=== PATIENT | female | born 1970 | race Caucasian/White ===

== ENCOUNTER 2024-01-20 17:08 | Emergency (ER) | payer BC, SELFPAY ==
[2024-01-20] VITALS (9 sets, daily range): BP systolic 116–164; BP diastolic 87–113; BMI 35.2
[2024-01-20] MEDS: PROTONIX IV 40 MG IV (18:14)
[2024-01-20] MEDS: MAALOX 50 PO (18:15)
[2024-01-20 18:16] LABS: % Basophils 0.7 % (0-2); % Immature Granulocytes 0.2 % (0-0.5); % Lymphocytes 20.9 % (20.5-51.1); % Monocytes 10.9 % (1.7-9.3); % Neutrophils 66.3 % (42.2-75.2); Absolute Basophils 0.1 10^3/uL (0-0.2); Absolute Eosinophils 0.1 10^3/uL (0-0.7); Absolute Lymphocytes 1.9 10^3/uL (1.2-3.4); Absolute Neutrophils 5.9 10^3/uL (1.4-6.5); Hematocrit 43.3 % (37.0-47.0); Hemoglobin 14.8 g/dL (12.0-16.0); Mean Corp Hgb Conc. 34.2 g/dL (33.0-37.0); Mean Corpuscular Hgb 30.9 pg (27.0-31.0); Mean Corpuscular Volume 90.4 fL (81.0-99.0); Mean Platelet Volume 11.9 fL (7.4-10.4); Nucleated Red Blood Cells % 0 %; Platelet Count 174 10^3/uL (130-400); Red Blood Cell Count 4.79 10^6/uL (4.20-5.40); Red Cell Dist. Width 12.8 % (11.5-14.5)
--- NOTE | 2024-01-20 18:17 | ED.GENMED ---
History of Present Illness
General
Chief Complaint: Chest Pain
Source: patient
Exam Limitations: none
Time Seen by Provider: 01/20/24 17:54
Travel History
Have you had any contact with someone who has COVID-19?: No
Do you have any symptoms of coronavirus? Fever > 100 degrees, chills, cough, shortness of breath, sore throat, loss of taste or smell, muscle aches, or headache?: No
History of Present Illness
History of Present Illness:
This is a 53 year old female that comes in with c/o chest tightness. States that this started about 3pm and has continued. States that she called her sister around 4:30pm and they came here. States that she lives by herself and she wanted to make
sure that she would wake up. States that she also has a headache. Denies any fever, chills, SOB, abd pain, nausea, vomiting, diarrhea, dizziness, urinary burning.
Past History
Past History
ED Past Medical History: HTN, Psychiatric (Anxiety, Depression) and Other (Diverticulitis, ); Negative Asthma, Hypercholesterolemia or NIDDM
ED Past Surgical History: Orthopedic (Plate left hand, right knee surgery)
Social History
Tobacco: Former smoker
Alcohol: Occasional
Drug: None
Personal: Single
Living: alone
Family History
Family History: Other (She does not know her family Hx.)
Review of Systems
Review of Systems
All Other Systems: ROS reviewed and negative except as documented in HPI and ROS
Constitutional: Reports no symptoms; Denies fever or chills
EENT: Reports no symptoms
Respiratory: Reports no symptoms; Denies cough or trouble breathing
Cardiac: Reports chest pain (Tightness)
ABD/GI: Reports no symptoms; Denies abdominal pain, nausea, vomiting or diarrhea
: Reports no symptoms; Denies dysuria, frequency or urgency
Musculoskeletal: Reports no symptoms
Skin: Reports no symptoms
Neurological: Reports headache; Denies dizzy
Psychiatric: Reports no symptoms
Phy Exam
General Physical Exam
General Presentation: well appearing and no apparent distress
General age: appears stated age
General Skin: warm and dry
General Habitus: normal
General Mental: alert
General Hydration: appears well hydrated
ENT Exam
ENT Exam: TM's normal, pharynx normal and neck supple
Eye Exam
Eye Exam: EOMI
Cardiovascular Exam
Cardiovascular Exam: regular rate/rhythm, no edema, no murmur and normal peripheral pulses
Pulmonary Exam
Pulmonary Exam: lungs clear, no respiratory distress, no rales, chest non tender, no crackles, no rhonchi, no wheezing and no cough
Gastrointestinal Exam
Gastrointestinal Exam: normal bowel sounds, non tender, soft, no organomegaly, no pulsatile mass and non distended
Musculoskeletal Exam
Musculoskeletal Exam: full ROM and no edema
Skin Exam
Skin Exam: normal color, warm/dry, no rash and no petechia
Psychiatric Exam
Psychiatric Exam: normal mood/affect
Scores
Heart Score for Chest Pain Patients
STEMI patient?: No
History: Slightly or Non-Suspicious
ECG: Normal
Age: >/= 65 years
Risk Factors: 1 or 2 Risk Factors
Troponin: </= Normal Limit
Heart Score for Chest Pain Patients: 3
Heart Score Risk: 2.5% MACE over next 6 weeks
Course
Orders/Labs/Results
Orders:
Orders
01/20/24 17:09
EKG [Electrocardiogram (*1)] Stat
Reason for Study: Chest Pain
01/20/24 17:10
EKG- Treatment ONCE
01/20/24 18:02
Mag Hydrox/Al Hydrox/Simeth [Maalox] 30 ml Phenobarb/Hyoscy/Atropine/Scop [] 10 ml Viscous Lidocaine 2% [Xylocaine Viscous Cup] 10 ml PO NOW
Pantoprazole [Protonix IV] 40 mg IV NOW STA
01/20/24 18:03
CR Chest - 2 Views Urgent
Comment:
Reason For Exam: Chest pain
01/20/24 18:07
Complete Blood Count/With Diff Urgent
Comprehensive Metabolic Panel Urgent
Lipase Urgent
Troponin I Q3H
01/20/24 18:12
Mag Hydrox/Al Hydrox/Simeth [Maalox] 30 ml .ROUTE .STK-MED ONE
Phenobarb/Hyoscy/Atropine/Scop [] 10 ml .ROUTE .STK-MED ONE
Viscous Lidocaine 2% [Xylocaine Viscous Cup] 15 ml .ROUTE .STK-MED ONE
01/20/24 21:05
EKG [Electrocardiogram (*1)] Urgent
Reason for Study: Chest Pain
EKG- Treatment ONCE
01/20/24 21:08
Troponin I Q3H
Abnormal Lab Results
01/20/24
18:07
MPV 11.9 H fL
(7.4-10.4)
Absolute Monos (auto) 1.0 H 10^3/uL
(0.1-0.6)
Monocytes % 10.9 H %
(1.7-9.3)
Potassium 3.4 L mmol/L
(3.5-5.1)
BUN 25 H mg/dl
(7-17)
Glucose 113 H mg/dl
(70-99)
01/20/24 18:07
01/20/24 18:07
Dehydration. glucose nonfasting. Both Troponin <0.012, Lipase normal at 165
Vital Signs
Initial and Last Documented VS:
Initial Vital Signs
Temp Pulse Resp BP Pulse Ox
98 F 80 16 164/113 98
01/20/24 17:10 01/20/24 17:10 01/20/24 17:10 01/20/24 17:10 01/20/24 17:10
Last Documented Vital Signs
Temp Pulse Resp BP Pulse Ox
98 F 88 16 126/98 98
01/20/24 17:10 01/20/24 17:31 01/20/24 17:31 01/20/24 17:31 01/20/24 17:31
MDM/Problems Addressed
Differential Diagnosis Includes:
GERD, Coronary syndrome
MDM/Problems Addressed:
This is a 53 year old female that comes in with c/o chest tightness. States that this started about 3pm and has continued.
Will check labs, ECG and give Protonix and Gi cocktail.
back into see patient. Patient states that she is feeling better after the medication. Explained that her blood work shows that she is dehydrated and that her First Troponin is normal.
Back into see patient. Explained that her second Troponin is normal. ECG are normal. patient has an appointment with Dr. Prieto tomorrow. Explained that his most likely was reflux. Will place patient on Protonix daily and encouraged patient to try
and decrease her caffeine intake. Patient to return with any concerns,
Repeat ECG: rate 69, NSR< Normal axis. QRS normal. Negative for ischemia. Nonspecific T wave III, V1, V2, v3, Checked by Dr. Esparza
Chronic conditions affecting care:
NA
Acute Exacerbation and/or Progression of Chronic Illness:
NA
*Radiology
Radiology exam reviewed: radiology read reviewed (Chest-No acute cardiopulmonary disease. )
*Pulse Oximetry
Patient hypoxic: no
*EKG
Interpreted by ED Provider?: Yes
Heart Rate: 77
Rate: normal
Rhythm: sinus
[place]: normal axis
Interval: normal interval
QRS Pattern: normal QRS
Ischemia: no ischemia
*[employer] Interpretation
Rate: normal
Heart Rate: 88
Rhythm: sinus
*Critical Care Note
Total Time (30-74mins, 75-104mins- exclusive of procedures): Not Applicable
ED Attending Note
-
Portions of this chart may have been created with voice recognition software.� Occasional wrong word or��sound alike� substitutions may have occurred due to the inherent limitations of voice recognition software.
Discharge Plan
Departure
Patient Disposition: Home (Routine Discharge)
Date of Disposition: 01/20/24
Time of Disposition: 22:10
Patient with high blood pressure during this ER visit?: Yes
Condition: Good
Covid-19: Not Applicable
Discharge Problem:
Chest pain due to GERD
Instructions: Acid Reflux and GERD In Adolescents (DC), BLOOD PRESSURE
Prescriptions:
New
pantoprazole [Protonix] 40 mg tablet,delayed release (DR/EC)
40 mg PO DAILY Qty: 15 0RF
No Action
carvedilol [Coreg] 25 MG tablet
25 mg PO BID
hydralazine 25 MG tablet
50 mg PO BID
spironolactone 25 MG tablet
50 mg PO DAILY
vilazodone [Viibryd] 10 MG tablet
10 mg PO DAILY
chlorthalidone 25 MG tablet
25 mg PO DAILY
Referrals:
Adam Prieto MD [Family Provider] - Tomorrow
Activity Restrictions/Additional Instructions:
As discussed, your blood work shows that you are dehydrated. Please increase your water intake to 8-8oz glasses daily. Your Both Troponin are normal. You have an appointment with the Primary care doctor tomorrow. You have also been given a
prescription for Protonic. This will help decrease any Reflux. IF YOU HAVE INCREASED OR CHANGING PAIN, FEVER, OR YOU HAVE ANY OTHER CONCERNS PLEASE RETURN TO THE EMERGENCY ROOM.
Interventions
Interventions:
*Risk Screen - Suicide Last Done: 01/20/24 17:10
*General Assessment Last Done: 01/20/24 17:29
*Neglect/Abuse Screening Last Done: 01/20/24 17:10
*ED COVID-19 Vaccine History Last Done: 01/20/24 17:10
ED- Cardiac Assessment Last Done: 01/20/24 18:55
Discharge Date and Time
Print Language: GEORGIAN
[2024-01-20 18:37] LABS: ALT (SGPT) 30 U/L (0-35); AST (SGOT) 28 U/L (14-36); Albumin 4.6 g/dl (3.5-5.0); Alkaline Phosphatase 72 U/L (38-126); Blood Urea Nitrogen 25 mg/dl (7-17); Calcium 10.1 mg/dl (8.4-10.2); Carbon Dioxide 27 mmol/L (22-30); Chloride 102 mmol/L (98-107); Estimated Creatinine Clearance 87 ml/min; Glucose 113 mg/dl (70-99); Lipase 165 U/L (23-300); Potassium 3.4 mmol/L (3.5-5.1); Sodium 137 mmol/L (135-145); Total Bilirubin 0.5 mg/dl (0.2-1.3); Total Protein 7.4 g/dl (6.3-8.2); eGFR > 60.00
[2024-01-20 18:41] LABS: Troponin I < 0.012 ng/ml
[2024-01-20 21:43] LABS: Troponin I < 0.012 ng/ml
== END 2024-01-20 22:40 | disposition home or self-care (01) ==
LOC: EMR 17:08
PROVIDERS: Clinical Nurse Specialist Family Health; EMERGENCY PHYSICIAN Emergency Medicine; FAMILY PHYSICIAN Family Medicine
DX: K21.9 Gastro-esophageal reflux disease without esophagitis (principal); I10 Essential (primary) hypertension; Z87.891 Personal history of nicotine dependence; E86.0 Dehydration
CPT/HCPCS: 99285; 96374; 71046; 80053; 83690; 84484; 85025; 93005

== ENCOUNTER → 2024-01-24 13:30 | Outpatient (REF) | payer BC, SELFPAY | LOC: RCS 13:30 | PROVIDERS: ATTENDING PHYSICIAN Family Medicine | DX: R07.9 Chest pain, unspecified (principal) | CPT/HCPCS: 93017; 93350 ==

== ENCOUNTER → 2024-03-26 15:59 | Outpatient (REF) | payer BC, SELFPAY | LOC: HWRAD 15:59 | PROVIDERS: ATTENDING PHYSICIAN Chiropractor; FAMILY PHYSICIAN Family Medicine | DX: M25.551 Pain in right hip (principal) | CPT/HCPCS: 73523 ==

== ENCOUNTER → 2024-10-27 08:30 | Outpatient (REF) | payer BC, SELFPAY | LOC: WDC 08:30 | PROVIDERS: ATTENDING PHYSICIAN Obstetrics & Gynecology; FAMILY PHYSICIAN Family Medicine | DX: Z12.31 Encounter for screening mammogram for malignant neoplasm of breast (principal) | CPT/HCPCS: 77063; 77067 ==

== ENCOUNTER → 2025-08-11 07:49 | Outpatient (REF) | payer BC, SELFPAY ==
[2025-08-11 09:31] LABS: Hematocrit 44.0 % (37.0-47.0); Hemoglobin 15.0 g/dL (12.0-16.0); Mean Corp Hgb Conc. 34.1 g/dL (33.0-37.0); Mean Corpuscular Volume 90.0 fL (81.0-99.0); Nucleated Red Blood Cells % 0 %; Platelet Count 207 10^3/uL (130-400); Red Cell Dist. Width 12.2 % (11.5-14.5)
[2025-08-11 09:54] LABS: ALT (SGPT) 26 U/L (0-35); AST (SGOT) 26 U/L (14-36); Albumin 4.7 g/dl (3.5-5.0); Alkaline Phosphatase 68 U/L (38-126); Blood Urea Nitrogen 20 mg/dl (7-17); Calcium 9.5 mg/dl (8.4-10.2); Carbon Dioxide 29 mmol/L (22-30); Chloride 96 mmol/L (98-107); Glucose 89 mg/dl (70-99); HDL Cholesterol 53 mg/dl; LDL Cholesterol, Calculated 155 mg/dl; Potassium 3.7 mmol/L (3.5-5.1); Sodium 133 mmol/L (135-145); Total Protein 7.4 g/dl (6.3-8.2); Very Low Density Lipoprotein 25 mg/dl (0-30); eGFR > 60.00
== END ==
LOC: REG 07:49
PROVIDERS: ATTENDING PHYSICIAN Family Medicine
DX: E66.9 Obesity, unspecified (principal); I10 Essential (primary) hypertension; E87.1 Hypo-osmolality and hyponatremia
CPT/HCPCS: 36415; 80053; 80061; 84443; 85025